=== PATIENT | female | born 1950 | race Caucasian/White ===

== ENCOUNTER → 2020-09-22 | Outpatient (CLI) | payer MEDICARE, OTHER ==
[~2020-09-22] MED LIST: CYCLOBENZAPRINE5 MG PO; MOBIC15 MG PO
== END ==
LOC: HEART 5 13:57
DX: R55 Syncope and collapse (principal); R00.2 Palpitations; I08.2 Rheumatic disorders of both aortic and tricuspid valves
CPT/HCPCS: 93306

== ENCOUNTER 2021-02-08 12:20 | Emergency (ER) | payer MEDICARE, OTHER ==
[2021-02-08 12:59] LABS: HEMOGLOBIN 12.6 gm/dl (12.3-15.3); RED BLOOD COUNT 4.47 M/UL (4.00-5.10); WHITE BLOOD COUNT 8.8 K/UL (4.5-11.0)
[2021-02-08 13:24] LABS: BUN/CREATININE RATIO 14 (0-10)
[2021-02-08] MEDS ORDERED: CYCLOBENZAPRINE5 MG PO (17:16)
[2021-02-08] MEDS ORDERED: MOBIC15 MG PO (17:16)
== END 2021-02-08 17:45 | disposition home or self-care (01) ==
LOC: ER1 12:20
PROVIDERS: Physician Assistant
DX: R91.1 Solitary pulmonary nodule (principal); R55 Syncope and collapse; R79.1 Abnormal coagulation profile; M79.662 Pain in left lower leg; I10 Essential (primary) hypertension; Z90.49 Acquired absence of other specified parts of digestive tract; Z90.89 Acquired absence of other organs; Z90.710 Acquired absence of both cervix and uterus
CPT/HCPCS: 71045; 80053; 81001; 82550; 82553; 83874; 84484; 85025; 85379; 93005; 93971; 96374; 99285; J1885; Q9967

== ENCOUNTER → 2022-03-06 | Outpatient (CLI) | payer MEDICARE, OTHER | LOC: KOH-I 15:39 | DX: R91.1 Solitary pulmonary nodule (principal) | CPT/HCPCS: 71250 ==

== ENCOUNTER → 2022-04-05 | Outpatient (CLI) | payer MEDICARE, OTHER | LOC: KOH-I 13:40 | DX: M79.672 Pain in left foot (principal) | CPT/HCPCS: 73620 ==